=== PATIENT | female | born 1950 | race Two or more races ===

== ENCOUNTER 2019-12-06 13:33 | Outpatient (CLI) | payer MEDICARE, MEDICAID ==
[~2019-12-06] VITALS: Ht 152.4 cm; Wt 67.6 kg
[2019-12-06 15:10] VITALS: BP 89/58
[2019-12-06] MEDS ORDERED: METFORMIN HCL500 M1 ORAL (15:10)
[2019-12-06] MEDS ORDERED: DEXILANT60 MG ORAL (15:10)
[2019-12-06] MEDS ORDERED: DEPRESSION MED (15:10)
[2019-12-06] MEDS ORDERED: TUMS300 MG PO (15:10)
[2019-12-06] MEDS ORDERED: FAMOTIDINE20 MG ORAL (15:10)
[2019-12-06] MEDS ORDERED: SENNA8.6 M2 PO (15:14)
--- NOTE | 2019-12-06 22:15 | Consultation ---
DATE OF CONSULTATION: 12/06/2019 CHIEF COMPLAINT: Abdominal pain. HISTORY OF PRESENT ILLNESS: This is a very pleasant 69-year-old [place] female with past medical history of GERD, depression, anxiety, diabetes, diverticulosis, IBS presented to us complaining of abdominal pain and constipation. Pain has been going on for long time. According to her, she has been having this pain since age 20. She has been seen by multiple GI doctors, had multiple endoscopies, colonoscopies here and also . So far diagnosis has been mostly diverticulosis. At this time, she has recurrent symptoms and what she is here for. PAST MEDICAL HISTORY: 1. GERD. 2. Depression. 3. Anxiety. 4. Diabetes. 5. Diverticulosis. 6. IBS. PAST SURGICAL HISTORY: None. MEDICATIONS: Please see medication reconciliation list. FAMILY HISTORY: Mostly diagnosed for diabetes. SOCIAL HISTORY: The patient denies any tobacco, alcohol, or drug abuse. ALLERGIES: No known drug allergies. REVIEW OF SYSTEMS: A 10-point review of systems was performed. Pertinent positives was abdominal pain, constipation, and bloating. PHYSICAL EXAMINATION: VITAL SIGNS: Temperature is 98.5, pulse 71, respirations 20, blood pressure is 89/50. HEENT: Normocephalic and atraumatic. Sclerae anicteric. NECK: Supple. No evidence of obvious lymphadenopathy. CARDIOVASCULAR: Regular rate and rhythm. Plus S1, S2. LUNGS: Clear to auscultation bilaterally. ABDOMEN: Positive bowel sounds. Soft, nontender. No rebound. No guarding. No peritoneal sign. EXTREMITIES: No cyanosis. No clubbing. No edema. ASSESSMENT: This is a 69-year-old female with sign and symptoms were most consistent with IBS, constipated, also combination of the SIBO, GERD. PLAN: Given the Dexilant is not working for her, we will switch to omeprazole trial 40 mg daily. The patient to be on Xifaxan for 14 days trial. Also patient to be started on Linzess 145 mcg daily. Also the patient was given one tablet p.o. daily. The patient to come back after the above treatment for followup. Chiki Vosoghi, M.D. DR: Johny JOB#: [id number] CC:
== END 2019-12-06 16:01 | disposition home or self-care (01) ==
LOC: PAN 13:33
DX: R10.9 Unspecified abdominal pain (principal); K21.9 Gastro-esophageal reflux disease without esophagitis; F32.9 Major depressive disorder, single episode, unspecified; F41.9 Anxiety disorder, unspecified; E11.9 Type 2 diabetes mellitus without complications; K57.90 Diverticulosis of intestine, part unspecified, without perforation or abscess without bleeding; K59.00 Constipation, unspecified; K56.609 Unspecified intestinal obstruction, unspecified as to partial versus complete obstruction; K58.9 Irritable bowel syndrome, unspecified
CPT/HCPCS: G0463